=== PATIENT | male | born 1955 | race Hispanic/Latino ===

== ENCOUNTER → 2023-09-16 09:21 | Outpatient (REF) | payer OTHER, SELFPAY | LOC: HWRAD 09:21 | PROVIDERS: ATTENDING PHYSICIAN Specialist; FAMILY PHYSICIAN Family Medicine | DX: C65.2 Malignant neoplasm of left renal pelvis (principal) | CPT/HCPCS: 74178; Q9967 ==

== ENCOUNTER → 2024-11-04 08:28 | Outpatient (REF) | payer OTHER, SELFPAY | LOC: RAD 08:28 | PROVIDERS: ATTENDING PHYSICIAN Specialist; FAMILY PHYSICIAN Family Medicine | DX: C65.2 Malignant neoplasm of left renal pelvis (principal) | CPT/HCPCS: 74178; Q9967 ==